=== PATIENT | male | born 1945 | race African-American/Black ===

== ENCOUNTER 2017-12-10 23:00 | Emergency (ER) | payer SELFPAY ==
[~2017-12-10] VITALS: Ht 170.2 cm; Wt 72.6 kg
[~2017-12-10 23:00] MED LIST: UNOBMED
[2017-12-10] MEDS ORDERED: CARVEDILOL12.5 MG ORAL (23:09)
[2017-12-10] MEDS ORDERED: LORazepam Inj 2mg/ml 1ml IV ONE (23:15)
[2017-12-10 23:21] VITALS: BP 162/82
--- NOTE | 2017-12-10 23:43 | Emergency Room Report ---
History of Present Illness General Chief Complaint: Seizure Source: Patient, Family Member Present Illness HPI Patient c/o dizziness at 4 Seizure witnessed at 10 (90 min prior). Was post-ictal per EMS. Tongue biting , incontinence. Now c/o left arm pain but denies chest pain, SOB HPI limited d/t language despite family interpreting No prior history of MO, CVA, HTN, DM Not on daily ASA, meds Allergies: Coded Allergies: No Known Allergies (Unverified , 12/10/17) Patient History Past Medical History: none Past Surgical History: none Pertinent Family History: none Social History: Denies: smoking, alcohol use, drug use Immunizations: UTD Reviewed Nursing Documentation: PMH: Agreed, PSxH: Agreed Nursing Documentation-PMH Hx Hypertension: Yes Review of Systems All Other Systems: negative except mentioned in HPI Physical Exam Vital Signs Date Time Temp Pulse Resp B/P (MAP) Pulse Ox O2 Delivery O2 Flow Rate FiO2 12/10/17 22:55 96.4 109 18 150/72 98 Room Air 12/10/17 23:21 96 Sp02 EP Interpretation: reviewed, normal General Appearance: normal inspection, well appearing, alert, GCS 15, non-toxic , mild distress Head: normocephalic, atraumatic Eyes: bilateral eye PERRL, bilateral eye EOMI ENT: normal ENT inspection, hearing grossly normal, normal pharynx, no angioedema, normal voice, TMs + canals normal, uvula midline, moist mucus membranes Neck: normal inspection, full range of motion, supple, thyroid normal, no meningismus, no bony tend Respiratory: normal inspection, lungs clear, normal breath sounds, no rhonchi, no respiratory distress, no retraction, no accessory muscle use, no wheezing, speaking full sentences Cardiovascular #1: regular rate, rhythm, no edema, no JVD, normal capillary refill Gastrointestinal: normal inspection, normal bowel sounds, non tender, soft, no mass, no peritonitis, non-distended, no guarding, no hernia, no pulsatile mass Genitourinary: no CVA tenderness Musculoskeletal: normal inspection, back normal, normal range of motion, no calf tenderness, pelvis stable, Lorrie's Sign negative Neurologic: normal inspection, alert, oriented x3, responsive, cash analyst III-XII nml as tested, motor strength/tone normal, cerebellar normal, normal gait, speech normal Psychiatric: normal inspection, judgement/insight normal, mood/affect normal, no suicidal/homicidal ideation, no delusions Skin: normal inspection, normal color, no rash Lymphatic: normal inspection, no adenopathy Procedures Critical Care Time Critical Care Time CC time 35 minutes Critical care time endorsed for this patient for seizure and anterior STEMI Critical care time includes review of laboratory tests, imaging, review of EMR, review of paperwork from SNF (if available), discussion with patient and family (if available), review of code status/POLS (if available). Critical care time also likely includes assessment of fluid status, stabilization of vital signs, selection and dosing of appropriate antibiotics, selection and dosing of Aspirin/Plavix/Heparin/Lovenox, discussion with PMD/ attending hospitalist/exhauster, and discussion with [employer] Dr Suresh. Critical care time does not include any procedures which are documented elsewhere in this EMR. Medical Decision Making Diagnostic Impression: Primary Impression: Seizure disorder Additional Impression: ST elevation (STEMI) myocardial infarction Qualified Codes: I21.3 - ST elevation (STEMI) myocardial infarction of unspecified site ER Course CT head: no acute ICH ECG with ST upslopping and dagger q waves anterior leads. Possible ST depression in 2, 3 AVF Was given ASA, heparin bolus in ED Transfer to [facility] for acute STEMI, cardiology ICU Accepted by [employer] Dr Suresh Troponin in progress at time of emergent transfer Dr Suresh wants patient to label cutter ETHEL Advised also Brilinta however we do not have in stock at [place]. EKG Diagnostic Results Rate: normal Rhythm: NSR ST Segments: other - ST elevation V2-3, ST depressions 2 3 AVF ASA given to the pt in ED: Yes Rhythm Strip Diag. Results EP Interpretation: yes Rate: 83 Rhythm: NSR, no PVC's, no ectopy Last Vital Signs Date Time Temp Pulse Resp B/P (MAP) Pulse Ox O2 Delivery O2 Flow Rate FiO2 12/10/17 23:21 97.8 92 17 162/82 96 Room Air 12/10/17 23:21 96 Status: improved Disposition: ADMITTED INPATIENT Condition: Critical ERIC TATE M.D. Dec 10, 2017 23:43
[2017-12-10 23:50] VITALS: BP 155/88
[2017-12-11] MEDS ORDERED: Heparin 5000 units/ml inj IV ONE (00:15)
[2017-12-11 00:29] VITALS: BP 150/87
[2017-12-11 00:40] LABS: EOSINOPHILS % (AUTO) 2.1 % (0.0-3.0); HEMATOCRIT 43.3 % (42.0-52.0); HEMOGLOBIN 13.9 G/DL (14.2-18.0); LYMPHOCYTES % (AUTO) 53.4 % (20.0-45.0); MEAN CORPUSCULAR VOLUME 73 FL (80-99); NEUTROPHILS % (AUTO) 36.6 % (45.0-75.0); PLATELET COUNT 218 K/UL (150-450); RED BLOOD COUNT 5.93 M/UL (4.70-6.10); RED CELL DISTRIBUTION WIDTH 13.5 % (11.6-14.8); WHITE BLOOD COUNT 6.6 K/UL (4.8-10.8)
[2017-12-11 00:45] LABS: ANION GAP 20 mmol/L (5-15); BLOOD UREA NITROGEN 27 mg/dL (7-18); CALCIUM 9.2 MG/DL (8.5-10.1); CARBON DIOXIDE 18 MMOL/L (21-32); CHLORIDE 105 MMOL/L (98-107); CREATININE 2.2 MG/DL (0.55-1.30); POTASSIUM 4.3 MMOL/L (3.5-5.1); SODIUM 143 MMOL/L (136-145)
[2017-12-11 00:49] VITALS: BP 150/87
[2017-12-11 00:50] LABS: ALANINE AMINOTRANSFERASE 43 U/L (12-78); ALKALINE PHOSPHATASE 81 U/L (46-116); ASPARTATE AMINO TRANSFERASE 21 U/L (15-37); BILIRUBIN,TOTAL 0.2 MG/DL (0.2-1.0)
--- NOTE | 2017-12-11 09:06 | Diagnostic Imaging Report ---
Indication: Seizure Technique: spiral acquisitions obtained through the brain. Angled axial and coronal 5 x 5 mm slices were reconstructed. No IV contrast utilized. Radiation dose was minimized using automated exposure control Total dose length product 1397 mGycm. CTDIvol(s) 70.38 x 2 mGy Comparison: none FINDINGS: No acute hemorrhage or edema. No mass effect or midline shift. There is age-related enlargement of the ventricles and extra axial CSF spaces. There is periventricular deep white matter ischemic change. There is encephalomalacia in the left anterior upper frontal lobe, consistent with old infarct old lacunar infarct is seen in the right cerebellar hemisphere. Old lacunar infarct is seen in the right thalamus Normal barrios-white differentiation otherwise. Visualized orbits are unremarkable. There is minimal ethmoid sinus mucosal disease. Intact calvarium. IMPRESSION: Chronic and age-related changes. Negative for acute intracranial bleed or mass effect Old infarcts, as described This agrees with the preliminary interpretation provided overnight by [facility] teleradiology service. The CT scanner at [facility] is accredited by the [employer] and the scans are performed using protocols designed to limit radiation exposure to as low as reasonably achievable to attain images of sufficient resolution adequate for diagnostic evaluation
--- NOTE | 2017-12-11 12:35 | Diagnostic Imaging Report ---
Indication: Chest pain Technique: One view of the chest Comparison: none Findings: Heart is borderline enlarged. The aorta is tortuous. The upper mediastinum is unremarkable. Lungs and pleural spaces are clear Impression: Borderline cardiomegaly No acute process
--- NOTE | 2017-12-18 13:48 | Cardiology Report ---
APPROVED REPORT EKG Measurement Heart [id number] Normal sinus rhythm Left axis deviation Anteroseptal infarct, possibly acute Abnormal ECG
== END 2017-12-11 00:40 | disposition short-term general hospital (02) ==
LOC: EDBD 23:00 → EMR 23:31
DX: G40.909 Epilepsy, unspecified, not intractable, without status epilepticus (principal); I21.3 ST elevation (STEMI) myocardial infarction of unspecified site; I10 Essential (primary) hypertension
CPT/HCPCS: 36415; 70450; 71045; 80053; 82962; 84484; 85025; 85730; 93005; 96374; 96375; 99291; G0480; J1644; 80329